=== PATIENT | female | born 1985 | race Caucasian/White ===

== ENCOUNTER 2019-12-02 07:26 | Emergency (ER) | payer OTHER ==
[~2019-12-02] VITALS: Ht 170.2 cm; Wt 77.1 kg
[~2019-12-02 07:26] MED LIST: ACETAMINOPHEN325 M1; ACYCLOVIR 400400 MG PO; AMBIEN; AMOXICILLIN 50500 M1 PO; BENADRYL25 MG; BLOOD PRESSURE CUFF; CIPROFLOXACIN500 M1 PO; CLEOCIN HCL150 MG PO; CLEOCIN HCL300 MG PO; COLACE 100 MG100 MG; DOXYCYCLINE 10100 MG PO; EYE DROP15 ML OP; FLAGYL 250 MG250 MG PO; FLAGYL OR; FLAGYL500 M1 PO; IBUPROFEN 600600 M1 PO; IBUPROFEN 800800 M1; IRON325; KEFLEX500 MG PO; MACROBID 100 M100 M1 PO; NOHOMEMEDICATIONS; NORCO 5-325 TA1 EACH PO; OPTIVE EYE DROP30 ML OP; PERCOCET 5-3251 EACH PO; PRENATAL VITAM1 EAC6 PO; TRAMADOL 50 MG50 MG PO; TRANDATE 200 M200 M1; TUCKS MEDICATE1 EAC1; ZOFRAN ODT4 MG PO; ZPAK PO
[2019-12-02 07:48] LABS: URINE BILIRUBIN NEGATIVE (Negative); URINE BLOOD NEGATIVE (Negative); URINE CLARITY CLEAR; URINE COLOR YELLOW; URINE GLUCOSE-RANDOM* NEGATIVE (Negative); URINE KETONES NEGATIVE (Negative); URINE LEUKOCYTES-REFLEX TRACE (Negative); URINE NITRITE-REFLEX NEGATIVE (Negative); URINE PROTEIN (DIPSTICK) NEGATIVE (Negative); URINE SPECIFIC GRAVITY >= 1.030 (1.005-1.035); URINE UROBILINOGEN 0.2 E.U./dl (0.2-1.0)
[2019-12-02 08:16] LABS: ABSOLUTE NEUTROPHILS 6.1 thou/uL (1.4-8.2); BASOPHILS 0.3 % (0.0-2.0); EOSINOPHILS 1.2 % (0.0-3.0); HEMATOCRIT 43.9 % (37.0-47.0); HEMOGLOBIN 14.5 gm/dL (12.0-15.0); LYMPHOCYTES 22.2 % (24.0-44.0); MCH 29.3 pg (26.0-34.0); MCHC 33.2 g/dL (28.0-37.0); MCV 88.2 fL (80.0-100.0); PLATELET COUNT 328 thou/uL (150-400); POLYS 69.3 % (36.0-66.0); RBC 4.97 mil/uL (4.20-5.00); RDW 14.1 % (10.5-14.5); WBC 8.9 thou/uL (4.0-11.0)
[2019-12-02 08:25] LABS: CALCIUM 9.7 mg/dL (8.5-10.1); CREATININE 0.8 mg/dL (0.6-1.0)
[2019-12-02 08:30] LABS: ALBUMIN 4.2 g/dL (3.4-5.0); TOTAL BILIRUBIN 0.3 mg/dL (<0.1-1.0); TOTAL PROTEIN 7.9 g/dL (6.4-8.2)
[2019-12-02] MEDS ORDERED: NORCO 5-325 TA1 EAC1 PO (10:42)
[2019-12-02] MEDS ORDERED: IBUPROFEN 800800 M1 PO (10:42)
[2019-12-02] MEDS ORDERED: SENNA-DOCUSATE1 EAC1 PO (10:42)
[2019-12-02 11:05] VITALS: BP 117/74
== END 2019-12-02 11:08 | disposition home or self-care (01) ==
LOC: ER 07:26
PROVIDERS: Emergency Medicine
DX: R10.2 Pelvic and perineal pain (principal); F17.210 Nicotine dependence, cigarettes, uncomplicated; Z88.1 Allergy status to other antibiotic agents; Z88.2 Allergy status to sulfonamides

== ENCOUNTER 2021-02-15 08:44 | Emergency (ER) | payer OTHER ==
[~2021-02-15] VITALS: Ht 170.2 cm; Wt 83.9 kg
[~2021-02-15 08:44] MED LIST changes: +IBUPROFEN 800800 M1 PO; +NORCO 5-325 TA1 EAC1 PO; +SENNA-DOCUSATE1 EAC1 PO
[2021-02-15] MEDS ORDERED: TRAMADOL 50 MG50 MG PO (09:58)
[2021-02-15 10:40] VITALS: BP 114/77
--- NOTE | 2021-02-18 07:15 | EKG ---
[place] [address] [facility] [place] [address] ELECTROCARDIOGRAM REPORT Name: NENA SEVILLA [facility]: [facility] [id number] Admission: 02/15/21 Attend Phys: Discharge: 02/15/21 Date of : 87 Report #: [id number] [facility] ED Test Date: 2021-02-15 Test Time: 09:52:09 Pat Name: NENA SEVILLA Department: Room: Gender: F [employer]: : 1985 Requested By: Juan Zurita Order Number: [id number] MD: Ethan Bailey Measurements Intervals [place]aston Rate: 70 P: 37 MO: 138 QRS: 15 QRSD: 82 T: 5 QT: 353 QTc: 381 Interpretive Statements Sinus rhythm Probable left atrial enlargement Compared to ECG 12/12/2012 20:54:30 No significant changes Electronically Signed On 02-18-2021 7:15:39 CDT by Ethan Bailey [email or web address] <ELECTRONICALLY SIGNED> By: Ethan Bailey MD, [facility] 02/18/21 0715 [id number] 1 Ethan Bailey MD, FACC /EPI
== END 2021-02-15 10:40 | disposition home or self-care (01) ==
LOC: ER 08:44
DX: S49.91XA Unspecified injury of right shoulder and upper arm, initial encounter (principal); F17.210 Nicotine dependence, cigarettes, uncomplicated; Z79.1 Long term (current) use of non-steroidal anti-inflammatories (NSAID); Z79.899 Other long term (current) drug therapy; Z88.2 Allergy status to sulfonamides; Z88.8 Allergy status to other drugs, medicaments and biological substances; X58.XXXA Exposure to other specified factors, initial encounter; Y93.89 Activity, other specified; Y92.89 Other specified places as the place of occurrence of the external cause; Y99.8 Other external cause status

== ENCOUNTER 2021-06-22 05:50 | Emergency (ER) | payer OTHER ==
[~2021-06-22] VITALS: Ht 170.2 cm; Wt 86.2 kg
[2021-06-22] MEDS ORDERED: NAPROSYN500 MG PO (08:53)
[2021-06-22 08:56] VITALS: BP 130/88
== END 2021-06-22 08:56 | disposition home or self-care (01) ==
LOC: ER 05:50
DX: S93.691A Other sprain of right foot, initial encounter (principal); I10 Essential (primary) hypertension; F17.210 Nicotine dependence, cigarettes, uncomplicated; Z88.2 Allergy status to sulfonamides; Z88.6 Allergy status to analgesic agent; W10.8XXA Fall (on) (from) other stairs and steps, initial encounter; Y93.89 Activity, other specified; Y92.89 Other specified places as the place of occurrence of the external cause; Y99.8 Other external cause status